=== PATIENT | female | born 1965 | race Caucasian/White ===

== ENCOUNTER 2019-03-27 05:38 | Emergency (ER) | payer OTHER ==
[~2019-03-27] VITALS: Ht 175.3 cm; Wt 74.3 kg
[~2019-03-27 05:38] MED LIST: CHLO25CA9 PO; FAMO-96 PO; MELA3TAB17 PO; ONDA8TAB14 PO; TYLENOL PM PO
[2019-03-27 05:39] VITALS: Ht 175.3 cm; Wt 74.3 kg
[2019-03-27] MEDS ORDERED: FAMOTIDINE 20 MG TAB PO STA (06:15)
[2019-03-27] MEDS ORDERED: SOD CHLORIDE 0.9% 1,000 ML IV STA (06:15)
[2019-03-27] MEDS ORDERED: ONDANSETRON 4 MG INJ IV STA (06:15)
[2019-03-27] MEDS ORDERED: LIDOCAINE/MYLANTA 40 ML BTL PO STA (06:15)
[2019-03-27] MEDS ORDERED: LORAZEPAM 2 MG INJ IV ONE (06:30)
[2019-03-27 08:49] VITALS: BP 106/93; PULSE 79; RESP 18
== END 2019-03-27 09:01 | disposition home or self-care (01) ==
LOC: E/R 05:38
DX: R10.13 Epigastric pain (principal); F17.210 Nicotine dependence, cigarettes, uncomplicated
CPT/HCPCS: 36415; 76705; 80053; 83690; 85025; 93005; 96374; 96375; J2060; J2405; J7030; Z7502; Z7610